=== PATIENT | female | born 1955 | race Caucasian/White ===

== ENCOUNTER → 2016-07-04 | Outpatient (CLI) | payer OTHER ==
[~2016-07-04] MED LIST: ADVAIR 500/501 DISK IH; ALBUTEROL SULF8.5 GM IH; ALBUTEROL17 GM IH; AMBIEN10 MG PO; ASTEPRO 0.15%30 ML NS; CALCIUM + VITA1 EACH PO; EFFEXOR37.5 MG PO; EFFEXOR75 MG PO; FLONASE16 G1 BOTH NARES; MIRALAX17 GM PO; MIRALAX255 GM PO; NASOGEL SALIN28.4 ML BOTH NARES; NASONEX17 GM BOTH NARES; NEXIUM40 MG PO; OCEAN NASAL 0.645 ML BOTH NARES; OPTIVAR 0.120 DROP/6 BOTH EYES; OSTEO BI-FLEX1 EACH PO; PREMARIN0.3 MG PO; PROBIOTIC1 EAC2 PO; PROVENTIL,2.5 MG/3 M IH; PULMICORT0.5 MG/21 IH; RELPAX40 MG PO; SINGULAIR10 MG PO; VENLAFAXINE H37.5 M1 PO; VERAPAMIL HCL120 M1 PO; VERELAN 180 MG180 MG PO; VITAMIN C1000 MG PO; VITAMIN D5000 UNIT PO; VOLTAREN 1% GE100 GM TP; ZANAFLEX2 M1 PO; ZOFRAN ODT8 MG PO; ZYRTEC10 M3 PO
== END | disposition home or self-care (01) ==
LOC: NUC 08:53
DX: R14.0 Abdominal distension (gaseous) (principal); R11.2 Nausea with vomiting, unspecified
CPT/HCPCS: 78264; A9541

== ENCOUNTER 2016-12-20 17:27 | Emergency (ER) | payer OTHER ==
[~2016-12-20] VITALS: Ht 162.6 cm; Wt 68.8 kg
[2016-12-20 19:05] LABS: HEMATOCRIT 34.6 % (36.0-46.0); MCH 30.6 PG (29.0-34.0); MCHC 33.5 G/DL (30.0-36.0); MCV 91.3 FL (83-99); MEAN PLAT.VOLUME 10.1 uM^3 (9.5-12.4); PLATELET COUNT 177 K/uL (156-360); RBC DIS.WIDTH-CV 13.7 % (11.8-14.6); RBC DIS.WIDTH-SD 46.3 % (39-53); RED BLOOD COUNT 3.79 M/uL (3.80-5.20); WHITE BLOOD COUNT 5.7 K/uL (4.1-10.2)
[2016-12-20 19:15] LABS: CHLORIDE 105 mEq/L (99-109); POTASSIUM 3.5 mEq/L (3.7-5.4); SODIUM 139 mEq/L (136-147)
[2016-12-20 19:16] LABS: GLUCOSE 93 mg/dL (70-99)
[2016-12-20 19:18] LABS: ANION GAP 11 MEQ/L (2-14)
[2016-12-20 19:20] LABS: GFR ESTIMATE (CALCULATED) > 59 mL/min/
[2016-12-20 19:21] LABS: UREA NITROGEN (BUN) 12 mg/dL (9-23)
[2016-12-20 19:28] LABS: TROP-I INTERPRETATION NEGATIVE; TROPONIN-I < 0.01 ng/mL (0.0-0.30)
[2016-12-20 19:56] LABS: ADD MIUA? NO; BILIRUBIN NEGATIVE; BLOOD NEGATIVE; COLOR YELLOW ((YELLOW)); GLUCOSE (STRIP) NEGATIVE; KETONES 5; LEUKOCYTES NEGATIVE; NITRITE NEGATIVE; PROTEIN (STRIP) NEGATIVE; UCUL ADDED? NO; UROBILINOGEN 0.2 MG/DL (0.2-1.0)
[2016-12-20 20:21] VITALS: BP 132/64
== END 2016-12-20 20:22 | disposition home or self-care (01) ==
LOC: EME 17:27
PROVIDERS: Emergency Medicine
DX: R55 Syncope and collapse (principal); K21.9 Gastro-esophageal reflux disease without esophagitis; J45.909 Unspecified asthma, uncomplicated
CPT/HCPCS: 80048; 81003; 84484; 85027; 93005; 99281; 99285; J2405; J7030